=== PATIENT | female | born 1950 | race Caucasian/White ===

== ENCOUNTER 2016-05-26 08:00 | Inpatient (IN) | payer BC ==
[~2016-05-26] VITALS: Ht 162.6 cm; Wt 100.6 kg
[~2016-05-26 08:00] MED LIST: ARMO120T PO; HYDR25TA5 PO; PRIL20CA9 PO; PROBCAP4
[2016-06-01] MEDS ORDERED: POTA10CA PO (13:35)
[2016-06-02] MEDS ORDERED: ACETAMINOPHEN 1000 MG/100 ML VIAL IV SCH (07:30)
[2016-06-02] MEDS ORDERED: METOPROLOL TARTRATE 25 MG TAB PO PRN (07:30)
[2016-06-02] MEDS: SODIUM CHLORID 0.9% 500 ML IV SCH ×2 (07:30→23:57)
[2016-06-02] MEDS ORDERED: INSULIN HUMAN REGULAR 1,000 UNITS/10 ML VIAL SQ PRN (07:30)
[2016-06-02] MEDS ORDERED: VANCOMYCIN HCL 1000 MG ON-CALL/NS 250 ML IV SCH ×2 (07:30)
[2016-06-02 07:46] VITALS: BP 158/77; PULSE 76; RESP 20; TEMP 98.9; O2SAT 98
[2016-06-02] MEDS: LACTATED RINGER'S 1000 ML IV SCH ×2 (07:55→19:47)
[2016-06-02] MEDS: ceFAZolin 1,000 MG/NS 100 ML IV SCH ×4 (07:55→19:47)
[2016-06-02] MEDS ORDERED: DEXAMETHASONE SOD PHOS 4 MG/ML VIAL ONE (08:18)
[2016-06-02] MEDS ORDERED: MIDAZOLAM HCL 5 MG/5 ML VIAL ONE (08:18)
[2016-06-02] MEDS ORDERED: BUPRENORPHINE HCL 0.3 MG/1 ML VIAL ONE (08:19)
[2016-06-02] MEDS ORDERED: HEPARIN SODIUM - SQ 10,000 UNITS/ML VIAL ONE (09:02)
[2016-06-02] MEDS ORDERED: HEPARIN SODIUM - IV 10,000 UNITS/10 ML VIAL ONE (09:02)
[2016-06-02] MEDS ORDERED: SUGAMMADEX SODIUM 200 MG/2 ML VIAL IV PUSH ONE ×2 (09:29)
[2016-06-02] MEDS ORDERED: BUPIVACAINE/EPINEPHRINE 0.25% PF 30 ML VIAL INFIL ONE (10:10)
[2016-06-02 10:11] LABS: HEMATOCRIT 29.5 % (35.0-46.0)
[2016-06-02] MEDS ORDERED: ONDANSETRON HCL 4 MG/2 ML VIAL IV PUSH ONE (10:15)
[2016-06-02] MEDS ORDERED: NITROGLYCERIN 1000 MCG/5 ML VIAL IV ONE (10:15)
[2016-06-02] MEDS ORDERED: LACTATED RINGER'S 1000 ML INJ 1,000 ML IV ONE (10:15)
[2016-06-02] MEDS ORDERED: ceFAZolin INJ 1,000 MG VIAL IV ONE (12:00)
[2016-06-02] MEDS ORDERED: DEXAMETHASONE SOD PHOS PF 10 MG/ML VIAL IV ONE (12:01)
[2016-06-02] MEDS ORDERED: BUPIVACAINE LIPOSOME PF 1.3% 20 ML VIAL ONE (12:02)
[2016-06-02] MEDS ORDERED: DO NOT ADM ANY ANTICOAGULANT DRUGS XX PRN (12:55)
[2016-06-02] MEDS: D5-NS + KCL 20 MEQ INJ 1,000 ML IV SCH ×2 (12:58→20:03)
--- NOTE | 2016-06-02 12:58 | HHI.PR ---
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 Jose Pereira; recommended splenectomy to prevent recurrence as residual tumor usually recurs as disease Complications: None Specimen(s) removed: Spleen, fragmented, to pathology Estimated blood loss: 500 ml Anesthesia: General Drains: None IVF (2000 ml) Patient to: PACU Patient Condition: Good Date/Time of Procedure: SEE SURGICAL CARE RECORD Rajeev Alexander MD Jun 02, 2016 12:58
[2016-06-02] MEDS ORDERED: ACETAMINOPHEN/HYDROcodone 325 MG/5 MG TAB PO PRN ×2 (13:00)
[2016-06-02] MEDS ORDERED: ONDANSETRON HCL 4 MG/2 ML VIAL IV PRN (13:00)
[2016-06-02] MEDS ORDERED: SODIUM CHLORIDE 0.9% FLUSH 5 ML FLUSH IVF PRN (13:00)
[2016-06-02] MEDS ORDERED: ceFAZolin 2 GM PREMIX 50 ML IV SCH (13:00)
[2016-06-02] MEDS ORDERED: HYDROmorphone HCL PF 1 MG/ML VIAL IV PRN (13:00)
[2016-06-02] MEDS ORDERED: NALOXONE HCL 0.4 MG/ML AMP IV PRN (13:00)
[2016-06-02] MEDS ORDERED: ZOLPIDEM TARTRATE 5 MG TAB PO PRN (13:00)
[2016-06-02] MEDS ORDERED: Post-op Orders (for Pharmacy) MISC XX ONE (13:00)
[2016-06-02] MEDS ORDERED: diphenhydrAMINE HCL 50 MG/ML VIAL IVP PRN (13:00)
[2016-06-02] MEDS ORDERED: MORPHINE SULFATE 4 MG/ML INJ IV PUSH PRN (13:00)
[2016-06-02] MEDS ORDERED: MIDAZOLAM HCL 2 MG/2 ML VIAL ONE (13:04)
[2016-06-02] MEDS ORDERED: fentaNYL CITRATE 250 MCG/5 ML AMP ONE (13:05)
[2016-06-02] MEDS ORDERED: *LABETALOL HCL 100 MG/20 ML VIAL PERIprocedural Use ONLY ONE (13:49)
[2016-06-02] MEDS: PCA - TOTAL MG MORPHINE DELIVERED PER SHIFT SCH ×2 (14:00→22:00)
[2016-06-02] MEDS ORDERED: *morphine SULFATE 8 MG/ML PERIprocedure ONLY ONE (14:08)
[2016-06-02 18:30] VITALS: BP 151/97; PULSE 81; RESP 20; TEMP 96.8; O2SAT 91
[2016-06-02] MEDS: ceFAZolin 2 GM PREMIX 50 ML IV SCH ×2 (18:32→23:57)
[2016-06-02 19:05] VITALS: O2SAT 98
[2016-06-02] MEDS ORDERED: NORC5TAB PO (19:16)
[2016-06-02] MEDS: SODIUM CHLORIDE 0.9% FLUSH 5 ML FLUSH IVF SCH (20:03)
[2016-06-02] MEDS: DOCUSATE SODIUM 100 MG CAP PO SCH (23:56)
[2016-06-03 00:10] VITALS: BP 147/68; PULSE 80; RESP 16; TEMP 96.5; O2SAT 94
[2016-06-03 04:00] VITALS: BP 141/82; PULSE 87; RESP 16; TEMP 96.5; O2SAT 94
[2016-06-03] MEDS: PCA - TOTAL MG MORPHINE DELIVERED PER SHIFT SCH ×2 (04:21→14:00)
[2016-06-03] MEDS: D5-NS + KCL 20 MEQ INJ 1,000 ML IV SCH ×2 (04:33→12:58)
[2016-06-03 07:53] VITALS: BP 145/68; PULSE 81; RESP 20; TEMP 98; O2SAT 97
[2016-06-03 08:28] VITALS: O2SAT 96
[2016-06-03] MEDS: SODIUM CHLORIDE 0.9% FLUSH 5 ML FLUSH IVF SCH (09:45)
[2016-06-03] MEDS: DOCUSATE SODIUM 100 MG CAP PO SCH (09:45)
[2016-06-03] MEDS: ceFAZolin 2 GM PREMIX 50 ML IV SCH (09:45)
[2016-06-03 10:33] VITALS: TEMP 97.8
[2016-06-03 11:50] VITALS: BP 150/73; PULSE 81; RESP 20; TEMP 98.7; O2SAT 98
--- NOTE | 2016-06-09 09:32 | MP ---
cc: RAJEEV ALEXANDER M.D., KELLY L. MD DATE OF SURGERY 06/02/2016 PROCEDURE 1. Diagnostic laparoscopy 2. 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 ANESTHESIA General endotracheal SURGEON Rajeev Alexander MD LOLLYPOP MACHINE OPERATOR Cody Llanes MD COMPLICATIONS None DRAINS None SPECIMENS Spleen to pathology. ESTIMATED BLOOD LOSS 500 mL FLUIDS 2000 mL crystalloid Co-surgeon was required due to the complex nature of the procedure with patient with metastatic disease requiring advanced laparoscopic skills. Dr. Llanes was present for the entire procedure and provided exposure and dissection essential to the procedure and good outcome. PROCEDURE IN DETAIL The patient was taken to the operating room and placed on the operating table in the supine position. After an adequate level of general endotracheal anesthesia was achieved, time-out was taken confirming the correct patient, site, and procedure to be performed. Skin and subcutaneous tissue was infiltrated with local anesthetic and a 5 mm trocar was placed in the upper abdomen to the left of the midline. A 5-mm trocar was utilized under direct vision with the laparoscope to obtain access to the abdominal cavity under low-flow insufflation conditions. When the abdominal cavity was reached, high-flow was initiated and a 30 degree 5 mm lens was inserted. Two additional 5-mm trocars were inserted to allow for manipulation of the left upper quadrant. Inspection of the lower abdomen revealed no evidence of tumor. There did not appear to be any tumor in the omentum nor was there any tumor in the mesentery that could be visualized. The spleen was then visualized and the harmonic scalpel was utilized to mobilize the splenocolic ligament. There did not appear to be any gross tumor in the inferior pole of the spleen. Dr. Pereira came into the room and after intraoperative consultation, it was felt that the spleen would serve as a safe reservoir for tumor cells and would allow for tumor to reoccur and not be adequately cleared even with chemotherapy. Thus the patient was best felt to be served by laparoscopic splenectomy at this time even as repeat PET scan in April demonstrated no activity in the spleen or in the mesentery. At this point, a 4th 5 mm trocar was placed and Dr. Llanse and the undersigned then further manipulated the spleen. The superior pole of the spleen was mobilized with the lienosplenic ligament taken down. The inferior pole vessels were taken down with the harmonic scalpel. At this point, a zunilda flex retractor was inserted and an attempt was made to get completely around the spleen. This was partially successful and allowed for manipulation of the spleen so that further splenic ligaments were able to be taken down. With this accomplished, the zunilda flex retractor was able to be completely encircled around the splenic hilum and with this accomplished, the [place] stapler was able to be inserted after upsizing one of the 5-mm trocars in the left midabdomen. The stapler was fired and all but a few short gastrics were able to be taken down with this. At this point, a second firing of the stapler was required. Care was taken to stay close to the splenic hilum so as not to endanger blood supply or the anatomy of the patients previous gastric bypass pouch. When this had been accomplished, bowel appeared to be viable as was the stomach pouch. The spleen was freed up and at this point, the spleen was placed into a large oversized EndoCatch bag and then the bag was brought up to the upsized port in the left midabdomen. The spleen was morcellated with a sponge stick and the pieces extracted. This was submitted for specimen analysis. The two staple lines were then reexamined and seen to be dry. After irrigation, Greta powder was placed into the cavity. Prior to this, manipulation of the mesentery once again was accomplished and no other disease was noted. At this point, insufflation was discontinued and the trocars removed. The 12-mm trocar site fascia was closed with a Alex-Harmon closure device. The remaining local anesthetic was utilized to infiltrate the trocar sites. The skin was closed at each of the trocar sites with 4-0 Vicryl in an interrupted buried fashion. All trocar sites were dressed with Steri-Strips. The patient was extubated and taken back to the recovery room in stable condition. She tolerated the procedure well. MD AUNDREA Hairston/ZAINAB /7:59 AM /9:16 AM [facility]
== END 2016-06-03 14:28 | disposition home or self-care (01) | DRG 358 ==
LOC: HSDI 06-02 06:52 → HOCB 06-02 17:54
PROVIDERS: ADMIT Surgery Trauma Surgery; ATTEND Surgery Trauma Surgery
PROC: 07TP4ZZ Resection of Spleen, Percutaneous Endoscopic Approach (ICD-10-PCS; principal; 2016-06-02 09:22)
DX: C78.89 Secondary malignant neoplasm of other digestive organs (principal); C57.00 Malignant neoplasm of unspecified fallopian tube; E03.9 Hypothyroidism, unspecified; K21.9 Gastro-esophageal reflux disease without esophagitis; E66.9 Obesity, unspecified; Z68.38 Body mass index [BMI] 38.0-38.9, adult; Z98.84 Bariatric surgery status
CPT/HCPCS: 36430; 36591; 85014; 85018; 85025; 86850; 86900; 86901; 86920; 88305; 94150; C9290; J0131; J0592; J0690; J1100; J1642; J1644; J2250; J2270; J2405; J3010; J3370; J3480; J7050; J7120; P9016

== ENCOUNTER 2016-07-25 17:18 | Inpatient (IN) | payer BC ==
[~2016-07-25] VITALS: Ht 162.6 cm; Wt 98.4 kg
[~2016-07-25 17:18] MED LIST changes: +NORC5TAB PO; +POTA10CA PO; -PROBCAP4
[2016-07-25 17:19] VITALS: BP 167/90; PULSE 110; RESP 16; TEMP 99; O2SAT 97
[2016-07-25 17:32] VITALS: BP 168/98; PULSE 109; RESP 24; TEMP 99.1; O2SAT 95
[2016-07-25] MEDS ORDERED: SODIUM CHLOR 0.9% 1000 ML INJ 1,000 ML IV SCH ×2 (17:38→19:15)
[2016-07-25] MEDS ORDERED: TRIA37.5 PO (17:39)
--- NOTE | 2016-07-25 17:39 | PD ---
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 Patient states that for the past 5 days she 's had nasal congestion, runny nose and cough. States that she has been taking Cipro for the past 5 days without improvement of symptoms. States that over the past 2 days her cough has worsened and she is coughing up green sputum. States over the past 2 days she's also had fever. States that today was the highest fever she had at 100.6F. States that she called Dr. Barney who is on- call for her oncologist Dr. Miner and was told to come to the emergency room. States that she has been taking vtva-cmv-cvnkrok cough medicine and pseudoephedrine with minimal improvement of symptoms. Denies chest pain, shortness of breath, difficulty breathing, abdominal pain, nausea, vomiting, diarrhea, body aches. No other complaints. PCP Dr. Mcguire. [facility] Past Medical History Cancer: Yes Cardiovascular Problems: No Chemotherapy: Yes Diabetes: No Endocrine: No Gastrointestinal Disorders: Yes (gerd) Genitourinary: No Hepatitis: No Hiatal Hernia: No Hypertension: No Immune Disorder: No Musculoskeletal: Yes (arthritis r thumb) Neurologic: No Psychiatric: No Reproductive: Yes Respiratory: No Immunizations Current: Yes Thyroid Disease: Yes Influenza Vaccination: Yes Past Surgical History Abdominal Surgery: Yes (GASTRIC BYPASS, LEI,APPY) AICD: No Ear Surgery: No Endocrine Surgery: No Eye Surgery: No Gynecologic Surgery: Yes (total hysterectomy dec 29, 2015) Joint Replacement: No Oral Surgery: Yes (UVILA REMOVED FOR SLEEP APNEA ) Pacemaker: No Other Surgery: Yes Social History Alcohol Use: Yes Tobacco Use: Yes Substance Use: No Allergies-Medications (Allergen,Severity, Reaction): Coded Allergies: Bactrim (Verified Allergy, Unknown, 07/25/16) Septra (Verified Allergy, Unknown, 07/25/16) Reported Meds & Prescriptions Reported Meds & Active Scripts Active Reported Triamterene-Hydrochlorothiazide 37.5-25 Mg Tab 1 Tab PO DAILY Potassium Chloride ER (Potassium Chloride) 10 Meq Cap 10 Meq PO BID Sigel Thyroid (Thyroid) 120 Mg Tab 120 Mg PO DAILY Review of Systems Except as stated in HPI: all other systems reviewed are Neg Physical Exam Narrative GENERAL: Well-nourished and well-developed pleasant female patient in no acute distress. SKIN: Warm and dry. HEAD: Normocephalic and atraumatic. EYES: No injection, drainage, or hyphema noted. PERRLA. EOMI. ENT: No nasal drainage noted. Oropharynx is clear and the TMs are normal with good landmarks. NECK: Supple and the trachea is midline. CARDIOVASCULAR: Regular rate and rhythm. RESPIRATORY: Breath sounds are equal bilaterally with no accessory muscle use, wheezing, rhonchi, or crackles. GASTROINTESTINAL: Abdomen is soft, non-tender, and nondistended. MUSCULOSKELETAL: No obvious deformities, swelling, cyanosis, or ecchymosis is present throughout the upper and lower extremities. Patient has full range of motion without any signs of neurovascular compromise. NEUROLOGICAL: Awake, alert, and oriented. Normal speech and gait. Cranial nerves are grossly intact. Data Data Last Documented VS Vital Signs Date Time Temp Pulse Resp B/P Pulse Ox O2 Delivery O2 Flow Rate FiO2 07/25/16 19:24 98.7 91 18 150/84 95 Room Air Orders Complete Blood Count With Diff (07/25/16 17:38) Comprehensive Metabolic Panel (07/25/16 17:38) Lactic Acid Sepsis Protocol (07/25/16 17:38) Urinalysis - C+S If Indicated (07/25/16 17:38) Influenzae A/B Antigen (07/25/16 17:38) Blood Culture (07/25/16 17:38) Chest, Single Ap (07/25/16 17:38) Ecg Monitoring (07/25/16 17:38) Iv Access Insert/Monitor (07/25/16 17:38) Oximetry (07/25/16 17:38) Acetaminophen (Tylenol) (07/25/16 17:45) Sodium Chlor 0.9% 1000 Ml Inj (Ns 1000 M (07/25/16 17:38) Cefepime Inj (Maxipime Inj) (07/25/16 18:57) Sodium Chlor 0.9% 1000 Ml Inj (Ns 1000 M (07/25/16 19:15) Admit To Inpatient (07/25/16 ) Vital Signs (Adult) Q4H (07/25/16 19:47) Activity Oob Ad [place] (07/25/16 19:47) Police Radio Dispatcher / Telemetry .CONTINUOUS (07/25/16 19:47) Diet Heart Healthy (07/26/16 Breakfast) Sodium Chlor 0.9% 1000 Ml Inj (Ns 1000 M (07/25/16 19:47) Sodium Chloride 0.9% Flush (Ns Flush) (07/25/16 20:00) Sodium Chloride 0.9% Flush (Ns Flush) (07/25/16 21:00) Acetaminophen (Tylenol) (07/25/16 20:00) Ondansetron Inj (Zofran Inj) (07/25/16 20:00) Basic Metabolic Panel (Bmp) (07/26/16 06:00) Complete Blood Count With Diff (07/26/16 06:00) Blood Culture (07/25/16 19:47) Resp Oxygen Jama C Titrat 1-4 L (07/25/16 ) Pt Request For Service (07/25/16 19:47) Heparin Inj (Heparin Inj) (07/25/16 20:00) Naloxone Inj (Narcan Inj) (07/25/16 20:00) Inpatient Certification (07/25/16 ) Cefepime Inj (Maxipime Inj) (07/25/16 20:00) Labs Laboratory Tests Test 07/25/16 18:02 White Blood Count 2.6 TH/MM3 Red Blood Count 3.36 MIL/MM3 Hemoglobin 12.2 GM/DL Hematocrit 35.7 % Mean Corpuscular Volume 106.1 FL Mean Corpuscular Hemoglobin 36.4 PG Mean Corpuscular Hemoglobin 34.3 % Concent Red Cell Distribution Width 20.3 % Platelet Count 129 TH/MM3 Mean Platelet Volume 8.6 FL Neutrophils (%) (Auto) 38.4 % Lymphocytes (%) (Auto) 33.5 % Monocytes (%) (Auto) 26.9 % Eosinophils (%) (Auto) 0.8 % Basophils (%) (Auto) 0.4 % Neutrophils # (Auto) 1.0 TH/MM3 Lymphocytes # (Auto) 0.9 TH/MM3 Monocytes # (Auto) 0.7 TH/MM3 Eosinophils # (Auto) 0.0 TH/MM3 Basophils # (Auto) 0.0 TH/MM3 CBC Comment DIFF FINAL Differential Comment Urine Color LIGHT-YELLOW Urine Turbidity CLEAR Urine pH 7.0 Urine Specific [place] 1.004 Urine Protein NEG mg/dL Urine Glucose (UA) NEG mg/dL Urine Ketones NEG mg/dL Urine Occult Blood NEG Urine Nitrite NEG Urine Bilirubin NEG Urine Urobilinogen LESS THAN 2.0 MG/DL Urine Leukocyte Esterase NEG Urine WBC LESS THAN 1 /hpf Urine Squamous Epithelial <1 /hpf Cells Microscopic Urinalysis Comment CATH-CULT NOT IND Sodium Level 132 MEQ/L Potassium Level 3.1 MEQ/L Chloride Level 93 MEQ/L Carbon Dioxide Level 28.6 MEQ/L Anion Gap 10 MEQ/L Blood Urea Nitrogen 9 MG/DL Creatinine 0.71 MG/DL Estimat Glomerular Filtration 83 ML/MIN Rate Random Glucose 104 MG/DL Lactic Acid Level 1.1 mmol/L Calcium Level 8.7 MG/DL Total Bilirubin 0.3 MG/DL Aspartate Amino Transf 25 U/L (AST/SGOT) Alanine Aminotransferase 24 U/L (ALT/SGPT) Alkaline Phosphatase 118 U/L Total Protein 7.3 GM/DL Albumin 3.6 GM/DL MDM Medical Decision Making Medical Screen Exam Complete: Yes Emergency Medical Condition: Yes Differential Diagnosis Pneumonia versus URI versus sepsis versus neutropenia versus influenza Narrative Course 65-year-old female with a history of fallopian tube cancer who is currently receiving chemotherapy presents to the emergency department for evaluation of fever with productive cough. Patient has a low-grade temperature of 99.1F here in the ED. She is reporting fever of 100.6F at home about 3 hours ago. She is tachycardic with a heart rate of 110 bpm. Otherwise vital signs within normal limits. Physical examination is essentially unremarkable. IV access is obtained, labs were drawn and sent. Patient is placed on cardiac telemetry and pulse oximetry monitoring. She is administered IV fluids. CBC shows a decreased white blood cell count 2.6, red blood cell count of 3.36, decreased platelet count of 129. Her white blood cell count and her platelet count is lower today than it was about 3 weeks ago. CMP shows mild hypokalemia with a potassium of 3.1, this will be repleted orally. Lactic acid is 1.1. Chest x-ray is negative for any acute abnormalities. I discussed the case with my attending physician and with oncologist Dr. Barney who both agree with admission for IV antibiotics for neutropenic fever. I discussed the case with my attending physician Dr. Wilkinson who is aware of the patients history, physical examination findings, and treatment plan. Physician Communication Physician Communication I spoke with Dr. Barney who agrees with admission for IV antibiotics, agrees with choice of Cefepime. I spoke with Dr. Dean DOMINGUEZ who agrees to admit the patient to her service. Diagnosis Primary Impression: Sepsis Qualified Code: A41.9 - Sepsis, due to unspecified organism Additional Impressions: Neutropenia with fever Productive cough History of cancer of fallopian tube in adulthood Admitting Information Admitting Physician Requests: Admit Janet Bryan Jul 25, 2016 17:39
[2016-07-25] MEDS ORDERED: ACETAMINOPHEN 325 MG TAB PO ONE (17:45)
[2016-07-25 18:09] VITALS: O2SAT 95
[2016-07-25 18:20] LABS: BASOPHIL % 0.4 % (0.0-2.0); EOSINOPHIL % 0.8 % (0.0-4.0); HEMATOCRIT 35.7 % (35.0-46.0); HEMO FLAGS DIFF FINAL; LYMPH % 33.5 % (9.0-44.0); LYMPHOCYTE # 0.9 TH/MM3 (1.0-4.8); MEAN CELL VOLUME 106.1 FL (80.0-100.0); MEAN CORPUSCULAR HEMOGLOBIN 36.4 PG (27.0-34.0); MEAN CORPUSCULAR HGB CONC 34.3 % (32.0-36.0); MONO % 26.9 % (0.0-8.0); NEUT % 38.4 % (16.0-70.0); PLATELET COUNT 129 TH/MM3 (150-450); RED BLOOD COUNT 3.36 MIL/MM3 (4.00-5.30); RED CELL DISTRIBUTION WIDTH 20.3 % (11.6-17.2); WHITE BLOOD COUNT 2.6 TH/MM3 (4.0-11.0)
[2016-07-25 18:22] LABS: BLOOD, URINE NEG (NEG); GLUCOSE,URINE NEG (NEG); KETONE, URINE NEG (NEG); NITRITE,URINE NEG (NEG); SQUAMOUS EPITHELIAL CELL URINE <1 /hpf (0-5); URINE COLOR LIGHT-YELLOW (YELLW/STRAW)
[2016-07-25 18:25] LABS: COMMENT (UR) CATH-CULT NOT IND; CULTURE IF INDICATED CATH CULTURE NOT IND
[2016-07-25 18:31] LABS: ANION GAP 10 MEQ/L (5-15); AST (GOT) 25 U/L (15-37); BICARBONATE 28.6 MEQ/L (21.0-32.0); BLOOD UREA NITROGEN 9 MG/DL (7-18); CHLORIDE 93 MEQ/L (98-107); GLOMERULAR FILTRATION RATE 83 ML/MIN (>89); POTASSIUM 3.1 MEQ/L (3.5-5.1); SODIUM (NA) 132 MEQ/L (136-145)
[2016-07-25 18:34] LABS: ALKALINE PHOSPHATASE 118 U/L (45-117); ALT (GPT) 24 U/L (10-53); TOTAL BILIRUBIN ADULT 0.3 MG/DL (0.2-1.0)
--- NOTE | 2016-07-25 18:44 | RADRPT ---
EXAM DATE/TIME: 07/25/2016 17:36 [facility] COMPARISON: No previous studies available for comparison. INDICATIONS : Productive cough with a fever x 5 days. MEDICAL HISTORY : Fallopian tube cancer SURGICAL HISTORY : Hysterectomy. Splenectomy. ENCOUNTER: Initial ACUITY: 1 day PAIN SCORE: 0/10 LOCATION: Bilateral chest FINDINGS: A single view of the chest demonstrates an Kiknkg-i-Knje in superior vena cava. No focal consolidatio n or effusion. No pneumothorax. Mildly tortuous aorta. CONCLUSION: 1. Gvhrtx-w-Msrg tip in superior vena cava. No acute findings. Trino Green MD on July 25, 2016 at 18:40 Board Certified Radiologist. This report was verified electronically.
[2016-07-25] MEDS ORDERED: CEFEPIME INJ 2,000 MG in SODIUM CHLORIDE 0.9% INJ 100 ML IV STA (18:57)
[2016-07-25 19:24] VITALS: BP 150/84; PULSE 91; RESP 18; TEMP 98.7; O2SAT 95
[2016-07-25] MEDS: SODIUM CHLOR 0.9% 1000 ML INJ 1,000 ML IV SCH ×2 (19:47→22:30)
[2016-07-25] MEDS ORDERED: SODIUM CHLORIDE 0.9% FLUSH 10 ML FLUSH IV FLUSH PRN (20:00)
[2016-07-25] MEDS ORDERED: ONDANSETRON HCL 4 MG/2 ML VIAL IVP PRN (20:00)
[2016-07-25] MEDS ORDERED: NALOXONE HCL 0.4 MG/ML AMP IV PRN (20:00)
[2016-07-25] MEDS: SODIUM CHLORIDE 0.9% FLUSH 10 ML FLUSH IV FLUSH SCH (21:00)
[2016-07-25 21:30] VITALS: BP 144/72; PULSE 81; PULSE 92; RESP 18; TEMP 97.8; O2SAT 94
[2016-07-25] MEDS: HEPARIN SODIUM - SQ 10,000 UNITS/ML VIAL SQ SCH (22:27)
[2016-07-25] MEDS: guaiFENesin SOLUTION 200 MG/10 ML CUP PO PRN (22:28)
[2016-07-25] MEDS ORDERED: SODIUM CHLORIDE 0.65% NASAL SPRAY 45 ML BTL NASAL PRN (23:45)
[2016-07-26] VITALS (7 sets, daily range): BP systolic 130–165; BP diastolic 66–81; PULSE 78–93; RESP 16–21; TEMP 97.1–99.5; O2SAT 96–98
[2016-07-26] MEDS: guaiFENesin SOLUTION 200 MG/10 ML CUP PO PRN ×4 (02:59→22:37)
[2016-07-26 06:59] LABS: HEMATOCRIT 33.5 % (35.0-46.0); MEAN CORPUSCULAR HEMOGLOBIN 35.7 PG (27.0-34.0); MEAN CORPUSCULAR HGB CONC 33.4 % (32.0-36.0); PLATELET COUNT 125 TH/MM3 (150-450); RED BLOOD COUNT 3.13 MIL/MM3 (4.00-5.30); WHITE BLOOD COUNT 2.5 TH/MM3 (4.0-11.0)
[2016-07-26 07:15] LABS: BICARBONATE 27.3 MEQ/L (21.0-32.0)
[2016-07-26 07:28] LABS: HEMO FLAGS AUTO DIFF
[2016-07-26 07:33] LABS: POTASSIUM 2.8 MEQ/L (3.5-5.1)
[2016-07-26 08:07] LABS: BANDS 4 % (0-6); POLYS (SEG NEUTROPHILS) 34 % (16-70); WBC DIFF SAMPLE 100
[2016-07-26 08:08] LABS: HOWELL-JOLLY BODIES PRESENT (NONE SEEN); PLATELET ESTIMATE SMEAR LOW (NORMAL); PLATELET MORPHOLOGY NORMAL (NORMAL); SCAN/DIFF FINAL DIFF MANUAL
[2016-07-26] MEDS: ACETAMINOPHEN 325 MG TAB PO PRN (08:09)
[2016-07-26] MEDS: HEPARIN SODIUM - SQ 10,000 UNITS/ML VIAL SQ SCH ×2 (08:10→21:29)
[2016-07-26] MEDS: CEFEPIME INJ 1,000 MG in SODIUM CHLORIDE 0.9% INJ 100 ML IV SCH ×2 (08:11→21:25)
[2016-07-26] MEDS: SODIUM CHLOR 0.9% 1000 ML INJ 1,000 ML IV SCH (08:25)
[2016-07-26] MEDS ORDERED: PSEUDOEPHEDRINE HCL SYRUP 30 MG/5 ML CUP PO PRN (08:30)
[2016-07-26] MEDS ORDERED: POTASSIUM CHLORIDE 20 MEQ CONTROLLED RELEASE TAB PO ONE (08:30)
[2016-07-26] MEDS: SODIUM CHLORIDE 0.9% FLUSH 10 ML FLUSH IV FLUSH SCH ×2 (08:34→21:00)
--- NOTE | 2016-07-26 09:17 | MB ---
cc: RONAN MEDEIROS MD,DELMY Mccoy M.D. DATE OF CONSULTATION: 07/26/2016 DATE OF : 1950 [address] Mcguire. REASON FOR CONSULTATION Febrile illness associated with upper respiratory tract infection and cough in a patient on high-dose chemotherapy. 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 Initially diagnosed in December of 2015. CURRENT TREATMENT The patient is status post five cycles of carboplatin and Taxol with the most recent cycle delivered on 07/07/2016; she received Neulasta growth factor support injection on 07/08/2016. CHIEF COMPLAINT 1. Four day history of sinus and nasal congestion associated with cough producing yellow phlegm. 2. Fevers up to 100.6 degrees Fahrenheit on the night of 07/25/2016. HISTORY OF PRESENT ILLNESS Ms. Bush is a very pleasant 65-year-old female who is well-known to me from my outpatient practice. Ms. 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 She has omental metastases. She underwent initial surgical resection and subsequently received four cycles of carboplatin and Taxol. Between cycles 4 and 5 she underwent additional resection of a tumor deposit in the peritoneum. Overall she had been tolerating treatment reasonably well other than having chemotherapy related myelosuppression and specifically anemia requiring transfusion support. Her most recent dose of chemotherapy was on 07/07/2016 on which day she received carboplatin and Taxol. The following day she received Neulasta support. She was scheduled to receive additional chemotherapy later this week. After developing the symptoms of nasal congestion and low grade fevers she called my manager of construction associate who recommended oral antibiotics. When the patient's symptoms did not improve she was advised to come into the emergency department. She has been initiated on cefepime and IV fluids. She continues to report having a headache. PAST MEDICAL HISTORY 1. Adenocarcinoma of the fallopian tube. 2. Obesity. 3. Personal history of tobaccoism (she quit about 15 years ago and had a 15 pack-year history of smoking). PAST SURGICAL HISTORY 1. Appendectomy. 2. Cholecystectomy. 3. Colonoscopy. 4. CT-guided biopsy of left upper quadrant abdominal mass. 5. D&C. 6. Gastric bypass surgery; Victorina-en-Y in 2002. 7. Hemorrhoidectomy. 8. Laparoscopic splenectomy. 9. Laparoscopic NATHALIE and BSO. 10. Tonsillectomy. 11. Uvuloplasty. GYNECOLOGIC HISTORY 2, para 2, one interrupted . She is postmenopausal. FAMILY HISTORY Mother of an intracranial hemorrhage. Father of complication of dementia. Brother had myeloma. SOCIAL HISTORY The patient is , she lives at home with her . 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 She formerly was a smoker. She has two adult children. ALLERGIES BACTRIM DS. MEDICATION Current inpatient medications: 1. Cefepime 1 gram IV q.12 hours. 2. Azithromycin 500 mg IV q.24 hours. 3. Sodium chloride 100 cc/hour. 4. Tylenol 650 mg p.o. q.4 hours as needed for fever. 5. Guaifenesin 100 mg p.o. q.4 hours as needed for cough. 6. Heparin 5000 units subcu q.12 hours. 7. Zofran 4 mg IV q.6 hours as needed for nausea and vomiting. 8. Potassium chloride 40 mEq p.o. x1. 9. Sudafed 30 mg p.o. q.4 hours as needed for cough. REVIEW OF SYSTEMS 13-point review of systems were obtained, the following are the pertinent positives: CONSTITUTIONAL: The patient reports fatigue, decreased appetite and fevers. She denies weight loss. HEENT: Reports headache, especially when she coughs, she reports nasal congestion, sinus congestion, runny nose. She denies soreness in the throat RESPIRATORY: Reports cough producing phlegm which is scant. She denies angina-like chest pain, PND, orthopnea. GI: She does have some diarrhea, but no melena or hematochezia. : No complaints. RESEARCH NEUROPSYCHOLOGIST: No focal sensory or motor deficits. SKIN: No complaints. PHYSICAL EXAMINATION VITAL SIGNS: Temperature 99.5 degrees Fahrenheit, heart rate 87 beats per minute, respiratory rate 18, blood pressure 165/81, O2 sats 96% on room air. GENERAL APPEARANCE: Ms. Bush is a middle-aged female, she is of medium height and heavy-set, appears to be in no acute distress. HEENT: Head is atraumatic, normocephalic, conjunctivae are not pale. Sclerae are anicteric, EOMI, PERRLA. ORAL EXAM: No pharyngeal erythema. NECK: No palpable cervical or supraclavicular adenopathy. RESPIRATORY: Good air movement bilaterally. No added breath sounds. She has rhonchi and coarse breath sounds bilaterally. CARDIOVASCULAR: Regular rate and rhythm, S1-S2. No obvious murmurs, rubs or gallops. ABDOMEN: Obese belly, soft and nontender, nondistended, palpable organ enlargement. LOWER EXTREMITIES: No pretibial edema or calf tenderness. stem. LABORATORY DATA Blood work dated 07/26/2016: WBC count 2.5, hemoglobin 11.2 grams per deciliter, hematocrit 35.5%, MCV 107, platelet count 125, absolute neutrophil count 1. Chemistries: Sodium 139, potassium 2.8, chloride 102, bicarbonate 27.3, BUN 6, creatinine 0.47, random glucose 133, lactic acid 1.1, calcium 8.3, total bilirubin 0.3, AST 25, ALT 24, alkaline phosphatase 118, albumin 3.6. Urinalysis: Without evidence of infection. Chest x-ray dated 07/25/2016: Reveals no acute findings. ASSESSMENT Ms. 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 Diagnosed in December of 2015. 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 Between the two surgeries she received four cycles of chemotherapy with high-dose carboplatin and Taxol. Her most recent cycle of chemotherapy was on 07/07/2016. Four days prior to admission she developed upper respiratory tract symptoms of runny nose, congestion, cough and phlegm production. She had low grade temperatures of 99-100 degrees Fahrenheit, on the day of presentation her fever spiked to about 100.6 degrees Fahrenheit. Since admission she has been relatively febrile. She has been initiated on empiric IV antibiotics. Her major complaint is that of cough, congestion and headache, especially when she coughs. RECOMMENDATIONS 1. Fallopian tube adenocarcinoma: The goal of care is to treat her up to eight cycles of carboplatin and Taxol. Her response to therapy will be assessed after completion of treatment with restaging imaging scans. She was due for cycle #6 later this week but I will have to postpone this treatment until she recovers from her acute illness. 2. Febrile illness likely related to a viral upper respiratory tract infection: I would recommend empiric antibiotic coverage. It will be reasonable to add on azithromycin to her cefepime. Nasal swab for influenza A and B was negative. 3. Hypokalemia: I have given her a single dose of potassium chloride 40 mEq x1 today. 4. Diet changed to regular. 5. I have also added on Sudafed for management of her congestion. 6. From an oncologic standpoint she may be discharged home once her symptoms are improved. A reasonable regimen for coverage would be perhaps putting her on Levaquin with probiotics upon discharge. For the time being continue cefepime and azithromycin. 7. ANC of 1000: She did receive Neulasta on 07/08/2016. I do not see any additional benefit of adding on Neupogen at this time. MD GRISEL Mclean/PRICE /8:23 AM /8:42 AM
[2016-07-26] MEDS: AZITHROMYCIN INJ 500 MG in SODIUM CHLOR 0.9% 250 ML INJ 250 ML IV SCH (09:25)
[2016-07-26] MEDS ORDERED: 1/2 NS IV SCH (11:00)
[2016-07-26] MEDS ORDERED: KCL IV SCH (11:00)
--- NOTE | 2016-07-26 11:37 | MH ---
cc: MIS VILLELA DATE OF ADMISSION: 07/25/2016 DATE OF 1950 CHIEF COMPLAINT Cough and cold symptoms with congestion. TRAVEL IN THE LAST 30 DAYS None. 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 Currently the patient is on chemotherapy, her regimen is every three weeks and her chemotherapy next dose is due in two days. Currently this has been put on hold per her oncologist and has been placed. The patient noted approximately five days ago nasal congestion acute onset with runny nose and cough. She has been taking [id number] medications and a five-day course of Cipro which is not improving her symptoms. Currently she states she is coughing up a green sputum and she has had a low-grade fever, high being 100.6. The patient talked to her oncologist, Dr. Miner, and instructed anytime to call or be observed if her temperature is higher than 100.4. The patient's cough is a productive sound, raspy. The patient does have a history of tobacco abuse but she quit approximately 15 years ago. The patient denies any chest pain, no shortness of breath. No nausea, vomiting, no diarrhea, no constipation, no headaches. No abdominal pain. As described, chief complaint is cough and cold symptoms. PAST MEDICAL HISTORY 1. Fallopian tube cancer diagnosed in December of 2015, currently receiving chemotherapy regimen. 2. GERD. 3. Bronchitis. 4. Arthritis right thumb. 5. Thyroid disease. 6. Obesity. 7. COPD. 8. Obstructive sleep apnea. SURGICAL HISTORY 1. Cholecystectomy. 2. Appendectomy. 3. Gastric bypass. 4. Total hysterectomy December 29, 2015. 5. Uvula removed for sleep apnea. ALLERGIES BACTRIM. SEPTRA. MEDICATIONS REPORTED 1. Potassium. 2. Thyroid medication. 3. Triamterene hydrochlorothiazide. 4. Cipro for the past 5 days. 5. Whio-kid-liemgzi cough meds. SOCIAL HISTORY The patient is currently , lives with her in her home. She was a previous tobacco user but quit approximately 15 years ago. She enjoys had a social occasional glass of wine or rum. No illicit drug use. FAMILY HISTORY Positive for cancer, melanoma. REVIEW OF SYSTEMS A 12-point review was obtained. Positives noted in the HPI which do include cough, nasal congestion, runny nose. Positive for green sputum, fever low-grade, generalized weakness and malaise, otherwise systems negative or unremarkable PHYSICAL EXAMINATION VITAL SIGNS: Temperature 97.3, pulse 87, respirations 20, blood pressure 142/81, initially on admission 150/84. O2 sat 96 currently on room air. GENERAL: Mildly obese white female, looks to be her stated age, resting in the bed, alert, oriented and a good historian. HEENT: Atraumatic, normocephalic. Alopecia. PERRLA. [place] and moist mucous membranes. NECK: Supple. Heart sounds S1, S2. Regular rate and rhythm. No murmurs, rubs or gallops. EXTREMITIES: She has a trace of pedal edema in her lower extremities. Pulses are intact. RESPIRATORY: The patient does have a few expiratory wheezes noted posteriorly in the upper keene, essentially clear in the lower lung keene. She is positive for some rhonchi. ABDOMEN: Round, soft, nontender, nondistended. Active bowel sounds. MUSCULOSKELETAL: She moves all of her extremities with purpose. She has equal hand director corporate compliance. No clubbing, no cyanosis. NEUROLOGIC: Alert, oriented, awake. Speech is clear and normal. PSYCHOLOGICAL: Appropriate mood and affect. DIAGNOSTIC DATA WBC count 2.5, RBC 3.13, hemoglobin 11.2, hematocrit 33.5, platelet count is 125. Monocyte percentage is high at 20, monocyte percentage auto is 26.9, platelets are low. Morphology is normal. [place] bodies present. Neutrophil percentage manual 34. Chemistry: Sodium 139, potassium 2.8, chloride 102, carbon dioxide 27.3. Anion gap 10, BUN is 6 or 7, GFR 133, glucose 90, calcium 8.3. Urine is yellow, clear, pH of 7. Specific gravity 1.004. Negative for protein, glucose, ketones, occult blood, nitrites and bilirubin. The leukocyte esterase is negative. Culture is not indicated. IMAGING Chest x-ray with a port in the superior vena cava but no other acute findings. ASSESSMENT 1. Lactic acid sepsis due to unspecified organism. 2. Probable upper respiratory infection with bronchitis. 3. Neutropenia with fever. 4. Hypokalemia, severe. 5. Thrombocytopenia. 6. Anemia. 7. History of cancer of the fallopian tubes. PLAN 1. Admit to inpatient status. In the emergency room the patient had IV access ECG monitoring, labs, Tylenol p.o., gentle hydration. She received azithromycin IV and cefepime IV. Labs were initiated. 2. PUD prophylaxis with heparin. 3. O2 per nasal cannula. 4. We will also place her on a heart healthy diet. 5. Give her guaifenesin for her cough q. 4 p.r.n. 6. Nasal spray q. 4 p.r.n. 7. Pseudoephedrine currently with q. p.r.n. 8. We will maintain her on Azithromycin IV as well as her cefepime. 9. Consult Oncology for his expert opinion. This is his patient on an outpatient basis and he will followup. He has changed her diet to a regular diet and is monitoring her labs related to her fallopian tube adenocarcinoma. We appreciate his expert opinion. 10. I will give her some potassium boluses and keep her fluids going at 100 cc/hour. 11. Sputum culture. 12. PUD prophylaxis with Pepcid. 13. Reconcile her medications. 14. Vital signs q. 4 as warranted. 15. Activity out of bed but with assistance. The patient's plan of care and treatment regimen will be based on her needs during this hospital course. The patient is full code, full aggressive dare and we will treat. Dictated by: JUNE Weiner MD GHADA Somers/JOSH /10:34 AM /11:06 AM
[2016-07-26] MEDS: TRIAMTERENE/HCTZ 37.5 MG/25 MG TAB PO SCH (11:56)
[2016-07-26] MEDS: THYROID 60 MG TAB PO SCH (11:56)
[2016-07-26] MEDS: FAMOTIDINE 20 MG TAB PO SCH ×2 (11:56→21:29)
[2016-07-26] MEDS: POTASSIUM CHLOR 20 MEQ PREMIX 100 ML IV SCH ×2 (11:57→13:47)
--- NOTE | 2016-07-26 15:25 | HHI.PR ---
Vitals/Results Intake & Output 07/25/16 07/25/16 07/26/16 15:00 23:00 07:00 Intake Total 480 ml 480 ml Balance 480 ml 480 ml Intake Oral 480 ml 480 ml # Voids 4 5 # Bowel Movements 1 Vital Signs Vital Signs Date Time Temp Pulse Resp B/P Pulse Ox O2 Delivery O2 Flow Rate FiO2 07/26/16 12:00 97.7 78 21 142/78 98 07/26/16 10:08 96 21 07/26/16 08:00 97.3 87 20 142/81 96 07/26/16 04:00 99.5 87 18 165/81 96 07/26/16 00:00 98.7 84 19 143/70 98 07/25/16 21:30 97.8 92 18 144/72 94 07/25/16 21:30 81 07/25/16 19:24 98.7 91 18 150/84 95 Room Air 07/25/16 18:09 95 Room Air 07/25/16 17:32 99.1 109 24 168/98 95 07/25/16 17:19 99.0 110 16 167/90 97 CBC/BMP: 07/26/16 0542 07/26/16 0542 Lab Results Laboratory Tests Test 07/25/16 07/26/16 18:02 05:42 White Blood Count 2.6 TH/MM3 2.5 TH/MM3 Red Blood Count 3.36 MIL/MM3 3.13 MIL/MM3 Hemoglobin 12.2 GM/DL 11.2 GM/DL Hematocrit 35.7 % 33.5 % Mean Corpuscular Volume 106.1 FL 107.0 FL Mean Corpuscular Hemoglobin 36.4 PG 35.7 PG Mean Corpuscular Hemoglobin 34.3 % 33.4 % Concent Red Cell Distribution Width 20.3 % 20.0 % Platelet Count 129 TH/MM3 125 TH/MM3 Mean Platelet Volume 8.6 FL 8.9 FL Neutrophils (%) (Auto) 38.4 % % Lymphocytes (%) (Auto) 33.5 % % Monocytes (%) (Auto) 26.9 % % Eosinophils (%) (Auto) 0.8 % % Basophils (%) (Auto) 0.4 % % Neutrophils # (Auto) 1.0 TH/MM3 TH/MM3 Lymphocytes # (Auto) 0.9 TH/MM3 TH/MM3 Monocytes # (Auto) 0.7 TH/MM3 TH/MM3 Eosinophils # (Auto) 0.0 TH/MM3 TH/MM3 Basophils # (Auto) 0.0 TH/MM3 TH/MM3 CBC Comment DIFF FINAL AUTO DIFF Differential Comment FINAL DIFF MANUAL Urine Color LIGHT-YELLOW Urine Turbidity CLEAR Urine pH 7.0 Urine Specific [place] 1.004 Urine Protein NEG mg/dL Urine Glucose (UA) NEG mg/dL Urine Ketones NEG mg/dL Urine Occult Blood NEG Urine Nitrite NEG Urine Bilirubin NEG Urine Urobilinogen LESS THAN 2.0 MG/DL Urine Leukocyte Esterase NEG Urine WBC LESS THAN 1 /hpf Urine Squamous Epithelial <1 /hpf Cells Microscopic Urinalysis Comment CATH-CULT NOT IND Sodium Level 132 MEQ/L 139 MEQ/L Potassium Level 3.1 MEQ/L 2.8 MEQ/L Chloride Level 93 MEQ/L 102 MEQ/L Carbon Dioxide Level 28.6 MEQ/L 27.3 MEQ/L Anion Gap 10 MEQ/L 10 MEQ/L Blood Urea Nitrogen 9 MG/DL 6 MG/DL Creatinine 0.71 MG/DL 0.47 MG/DL Estimat Glomerular Filtration 83 ML/MIN 133 ML/MIN Rate Random Glucose 104 MG/DL 90 MG/DL Lactic Acid Level 1.1 mmol/L Calcium Level 8.7 MG/DL 8.3 MG/DL Total Bilirubin 0.3 MG/DL Aspartate Amino Transf 25 U/L (AST/SGOT) Alanine Aminotransferase 24 U/L (ALT/SGPT) Alkaline Phosphatase 118 U/L Total Protein 7.3 GM/DL Albumin 3.6 GM/DL Differential Total Cells 100 Counted Neutrophils % (Manual) 34 % Band Neutrophils % 4 % Lymphocytes % 42 % Monocytes % 20 % Neutrophils # (Manual) 1.0 TH/MM3 Platelet Estimate LOW Platelet Morphology Comment NORMAL [place] Bodies PRESENT Microbiology Microbiology 07/25/16 Aerobic Blood Culture - Preliminary, Resulted NO GROWTH IN 1 DAY 07/25/16 Anaerobic Blood Culture - Preliminary, Resulted NO GROWTH IN 1 DAY 07/25/16 Aerobic Blood Culture - Preliminary, Resulted NO GROWTH IN 1 DAY 07/25/16 Anaerobic Blood Culture - Preliminary, Resulted NO GROWTH IN 1 DAY 07/25/16 Influenza Types A,B Antigen (KRISTINA) - Final, Complete NEGATIVE FOR FLU A AND B ANTIGEN.... Assessment/Plan Assessment/Plan patient seen and examined on cefepime and azithromycin no fever overnight CXR neg, can switch to po antibiotics in am ( beat run of V Tach , asymptomatic check Ca and magnesium level replace Potassium monitor discussed with patient discussed with nursing staff discussed with Jenae Mcintosh MD Jul 26, 2016 15:25
[2016-07-26 19:20] LABS: MAGNESIUM 1.8 MG/DL (1.5-2.5); POTASSIUM 3.6 MEQ/L (3.5-5.1)
[2016-07-26] MEDS ORDERED: BENZOCAINE-MENTHOL (SUGAR FREE) 15 MG-3.6 MG LOZENGE BUCCAL PRN (21:30)
[2016-07-27] VITALS (8 sets, daily range): BP systolic 138–177; BP diastolic 68–77; PULSE 65–90; RESP 18–20; TEMP 96.6–98.4; O2SAT 96–99
[2016-07-27] MEDS: ACETAMINOPHEN 325 MG TAB PO PRN (00:50)
[2016-07-27] MEDS: SODIUM CHLOR 0.9% 1000 ML INJ 1,000 ML IV SCH ×3 (01:47→21:48)
[2016-07-27 06:07] LABS: BICARBONATE 28.4 MEQ/L (21.0-32.0); POTASSIUM 3.1 MEQ/L (3.5-5.1)
[2016-07-27] MEDS ORDERED: MAGNESIUM SULFATE 1 GM PREMIX 100 ML IV ONE (07:45)
--- NOTE | 2016-07-27 07:47 | PD.ONC.PN ---
Subjective Subjective Remarks Patient seen and examined, subjectively she reports her respiratory tract symptoms have improved. She is coughing last and reports decreased discharge from the nose. Overnight she had a 9 beat run of ventricular tachycardia. She remains afebrile. Objective Data Date Time Temp Pulse Resp B/P Pulse Ox O2 Delivery O2 Flow Rate FiO2 07/27/16 04:30 97.2 65 18 168/77 98 07/27/16 00:00 97.5 80 18 167/76 98 07/26/16 20:00 97.3 88 16 130/66 97 07/26/16 20:00 88 07/26/16 16:00 97.1 82 16 137/71 07/26/16 12:00 97.7 78 21 142/78 98 07/26/16 10:08 96 21 07/26/16 08:00 93 07/26/16 08:00 97.3 87 20 142/81 96 Result Diagram: 07/26/16 0542 07/27/16 0445 Laboratory Results Laboratory Tests Test 07/26/16 07/27/16 18:10 04:45 Potassium Level 3.6 MEQ/L 3.1 MEQ/L Magnesium Level 1.8 MG/DL Sodium Level 140 MEQ/L Chloride Level 104 MEQ/L Carbon Dioxide Level 28.4 MEQ/L Anion Gap 8 MEQ/L Blood Urea Nitrogen 5 MG/DL Creatinine 0.47 MG/DL Estimat Glomerular Filtration 133 ML/MIN Rate Random Glucose 87 MG/DL Calcium Level 8.5 MG/DL Culture Results Microbiology Date/Time Procedure Status Source Growth 07/25/16 17:57 Aerobic Blood Culture - Preliminary Resulted Blood Peripheral NO GROWTH IN 1 DAY 07/25/16 17:57 Anaerobic Blood Culture - Preliminary Resulted Blood Peripheral NO GROWTH IN 1 DAY 07/25/16 18:02 Aerobic Blood Culture - Preliminary Resulted Blood Peripheral NO GROWTH IN 1 DAY 07/25/16 18:02 Anaerobic Blood Culture - Preliminary Resulted Blood Peripheral NO GROWTH IN 1 DAY 07/25/16 18:02 Influenza Types A,B Antigen (KRISTINA) - Final Complete Nasal Washing NEGATIVE FOR FLU A AND B ANTIGEN.... 07/26/16 15:30 Gram Stain Received Sputum Expectorated Sputum Pending 07/26/16 15:30 Sputum Culture Received Sputum Expectorated Sputum Pending Administered Medications Medications (Trade) Dose Ordered Sig/Mariela Route PRN Reason Start Time Stop Time Status Last Admin Dose Admin Sodium Chloride (NS 1000 ml Inj) 1,000 ml @ 100 mls/hr Q10H IV 07/25/16 19:47 07/27/16 01:47 Acetaminophen (Tylenol) 650 mg Q4H PRN PO TEMP > 100.4 07/25/16 20:00 07/27/16 00:50 Heparin Sodium (Porcine) 5000 units 5,000 units Q12H SQ 07/25/16 21:00 07/26/16 21:29 Cefepime HCl/ Sodium Chloride (Maxipime Inj/NS Inj) 100 ml @ 200 mls/hr Q12H IV 07/26/16 08:00 07/26/16 21:25 Guaifenesin (Robitussin Liq) 100 mg Q4H PRN PO COUGH 07/25/16 23:00 07/26/16 22:37 Sodium Chloride 1 spray 1 spray Q4H PRN NASAL NASAL CONGESTION 07/25/16 23:45 07/26/16 00:13 Azithromycin/ Sodium Chloride (Zithromax Inj/ NS 250 ml Inj) 250 ml @ 250 mls/hr Q24H IV 07/26/16 09:00 07/26/16 09:25 Famotidine (Pepcid) 20 mg BID PO 07/26/16 11:00 07/26/16 21:29 Thyroid ([place] Thyroid) 120 mg DAILY PO 07/26/16 12:00 07/26/16 11:56 Triamterene/HCTZ (Maxzide 37.5-25 Mg) 1 tab DAILY PO 07/26/16 12:00 07/26/16 11:56 Benzocaine/Menthol (Cepacol Extra Eve (Sugar Free)) 1 lozenge UNSCH PRN BUCCAL COUGH 07/26/16 21:30 07/26/16 21:52 Objective Remarks GENERAL APPEARANCE: Ms. Bush is a middle-aged female, she is of medium height and heavy-set, appears to be in no acute distress. HEENT: Head is atraumatic, normocephalic, conjunctivae are not pale. Sclerae are anicteric, EOMI, PERRLA. ORAL EXAM: No pharyngeal erythema. NECK: No palpable cervical or supraclavicular adenopathy. RESPIRATORY: Good air movement bilaterally. No added breath sounds. She has rhonchi and coarse breath sounds bilaterally. CARDIOVASCULAR: Regular rate and rhythm, S1-S2. No obvious murmurs, rubs or gallops. ABDOMEN: Obese belly, soft and nontender, nondistended, palpable organ enlargement. LOWER EXTREMITIES: No pretibial edema or calf tenderness. stem. Assessment/Plan Assessment Ms. 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 Diagnosed in December of 2015. 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 Between the two surgeries she received four cycles of chemotherapy with high-dose carboplatin and Taxol. Her most recent cycle of chemotherapy was on 07/07/2016. Four days prior to admission she developed upper respiratory tract symptoms of runny nose, congestion, cough and phlegm production. She had low grade temperatures of 99-100 degrees Fahrenheit, on the day of presentation her fever spiked to about 100.6 degrees Fahrenheit. Since admission she has been relatively febrile. She has been initiated on empiric IV antibiotics. Her major complaint is that of cough, congestion and headache, especially when she coughs. Plan 1. Fallopian tube adenocarcinoma: The goal of care is to treat her up to eight cycles of carboplatin and Taxol. Her response to therapy will be assessed after completion of treatment with restaging imaging scans. She was due for cycle #6 later this week but I will have to postpone this treatment until she recovers from her acute illness. 2. Febrile illness likely related to a viral upper respiratory tract infection: I would recommend empiric antibiotic coverage. It will be reasonable to add on azithromycin to her cefepime. Nasal swab for influenza A and B was negative. 3. Hypokalemia: IV replacement of potassium chloride and magnesium has been ordered. Consider discontinuation of hydrochlorothiazide as this may be exacerbating the hypokalemia. 4. Diet changed to regular. 5. I have also added on Sudafed for management of her congestion. 6. From an oncologic standpoint she may be discharged home once her symptoms are improved. A reasonable regimen for coverage would be perhaps putting her on Levaquin with probiotics upon discharge. For the time being continue cefepime and azithromycin. 7. ANC of 1000: She did receive Neulasta on 07/08/2016. I do not see any additional benefit of adding on Neupogen at this time. Newton Miner MD Jul 27, 2016 07:47
[2016-07-27] MEDS: FAMOTIDINE 20 MG TAB PO SCH ×2 (08:33→20:39)
[2016-07-27] MEDS: TRIAMTERENE/HCTZ 37.5 MG/25 MG TAB PO SCH (08:33)
[2016-07-27] MEDS: THYROID 60 MG TAB PO SCH (08:33)
[2016-07-27] MEDS: AZITHROMYCIN INJ 500 MG in SODIUM CHLOR 0.9% 250 ML INJ 250 ML IV SCH (08:33)
[2016-07-27] MEDS: CEFEPIME INJ 1,000 MG in SODIUM CHLORIDE 0.9% INJ 100 ML IV SCH ×2 (08:33→20:19)
[2016-07-27] MEDS: SODIUM CHLORIDE 0.9% FLUSH 10 ML FLUSH IV FLUSH SCH ×2 (08:34→20:23)
[2016-07-27] MEDS: HEPARIN SODIUM - SQ 10,000 UNITS/ML VIAL SQ SCH ×2 (08:34→20:39)
[2016-07-27] MEDS: POTASSIUM CHLOR 40 MEQ PREMIX 100 ML IV SCH ×2 (08:35→12:12)
[2016-07-27] MEDS: guaiFENesin SOLUTION 200 MG/10 ML CUP PO PRN ×3 (09:12→20:40)
--- NOTE | 2016-07-27 10:22 | HHI.PR ---
Subjective Interval History awake alert and oriented sitting in chair no more episodes of Vtach breathing a lot better, cough 90 % improved anxious to go home Vitals/Results Intake & Output 07/26/16 07/26/16 07/27/16 15:00 23:00 07:00 Intake Total 2560 ml 600 ml 480 ml Balance 2560 ml 600 ml 480 ml Intake Oral 900 ml 600 ml 480 ml IV Total 1660 ml # Voids 3 4 3 # Bowel Movements 1 4 3 Vital Signs Vital Signs Date Time Temp Pulse Resp B/P Pulse Ox O2 Delivery O2 Flow Rate FiO2 07/27/16 04:30 97.2 65 18 168/77 98 07/27/16 00:00 97.5 80 18 167/76 98 07/26/16 20:00 97.3 88 16 130/66 97 07/26/16 20:00 88 07/26/16 16:00 97.1 82 16 137/71 07/26/16 12:00 97.7 78 21 142/78 98 CBC/BMP: 07/26/16 0542 07/27/16 0445 Lab Results Laboratory Tests Test 07/26/16 07/27/16 18:10 04:45 Potassium Level 3.6 MEQ/L 3.1 MEQ/L Magnesium Level 1.8 MG/DL Sodium Level 140 MEQ/L Chloride Level 104 MEQ/L Carbon Dioxide Level 28.4 MEQ/L Anion Gap 8 MEQ/L Blood Urea Nitrogen 5 MG/DL Creatinine 0.47 MG/DL Estimat Glomerular Filtration 133 ML/MIN Rate Random Glucose 87 MG/DL Calcium Level 8.5 MG/DL Microbiology Microbiology 07/26/16 Gram Stain - Final, Resulted 07/26/16 Sputum Culture, Resulted Pending Assessment/Plan Assessment/Plan PHYSICAL EXAMINATION GENERAL: Mildly obese white female, looks to be her stated age, resting in the bed, alert, oriented and a good historian. HEENT: Atraumatic, normocephalic. Alopecia. PERRLA. [place] and moist mucous membranes. NECK: Supple. Heart sounds S1, S2. Regular rate and rhythm. No murmurs, rubs or gallops. EXTREMITIES: She has a trace of pedal edema in her lower extremities. Pulses are intact. RESPIRATORY: b/l coarse breath sounds, no wheezes ABDOMEN: Round, soft, nontender, nondistended. Active bowel sounds. MUSCULOSKELETAL: She moves all of her extremities with purpose. She has equal hand map editor. No clubbing, no cyanosis. NEUROLOGIC: Alert, oriented, awake. Speech is clear and normal. PSYCHOLOGICAL: Appropriate mood and affect. ASSESSMENT 1. Probable upper respiratory infection with bronchitis. 3. Neutropenia with low grade fever. 4. Hypokalemia, severe. 5. Thrombocytopenia. 6. Anemia. 7. History of cancer of the fallopian tubes. PLAN Patient seen and examined on Cefepime and Azithromycin, symptoms seem to be improving switch to po antibiotics soon Sudafed added monitor wbc and platelet count, low but stable Appreciate Hematology/ Oncology input replace electrolytes aggressivelt d/c HCTZ add low dose Coreg for BP management PUD prophylaxis DVT prophylaxis with SCD d/c heparin ( patient has thrombocytopenia and ambulating in room). O2 per nasal cannula. heart healthy diet. guaifenesin for her cough q. 4 p.r.n. Nasal spray q. 4 p.r.n. discussed with patient discussed with nursing staff Anticipate discharge in Jenae De Jesus MD Jul 27, 2016 10:22
[2016-07-27] MEDS: CARVEDILOL 3.125 MG TAB PO SCH ×2 (12:20→20:39)
[2016-07-28] VITALS: BP 131/65; PULSE 77; RESP 16; TEMP 97.7; O2SAT 97
[2016-07-28 04:30] VITALS: BP 116/87; PULSE 84; RESP 16; TEMP 97.2; O2SAT 97
[2016-07-28] MEDS: SODIUM CHLOR 0.9% 1000 ML INJ 1,000 ML IV SCH (07:47)
[2016-07-28 07:50] VITALS: BP 139/83; PULSE 70; RESP 20; TEMP 96.2; O2SAT 97
[2016-07-28] MEDS: THYROID 60 MG TAB PO SCH (08:06)
[2016-07-28] MEDS: AZITHROMYCIN INJ 500 MG in SODIUM CHLOR 0.9% 250 ML INJ 250 ML IV SCH (08:07)
[2016-07-28] MEDS: CEFEPIME INJ 1,000 MG in SODIUM CHLORIDE 0.9% INJ 100 ML IV SCH (08:07)
[2016-07-28] MEDS: CARVEDILOL 3.125 MG TAB PO SCH (08:08)
[2016-07-28] MEDS: FAMOTIDINE 20 MG TAB PO SCH (08:08)
[2016-07-28] MEDS: HEPARIN SODIUM - SQ 10,000 UNITS/ML VIAL SQ SCH (08:08)
[2016-07-28] MEDS: guaiFENesin SOLUTION 200 MG/10 ML CUP PO PRN (08:08)
[2016-07-28] MEDS: SODIUM CHLORIDE 0.9% FLUSH 10 ML FLUSH IV FLUSH SCH (08:09)
[2016-07-28 10:24] VITALS: O2SAT 96
[2016-07-28] MEDS ORDERED: CEFT500T3 PO (10:38)
[2016-07-28] MEDS ORDERED: CARV3.125 PO (10:39)
--- NOTE | 2016-07-28 10:39 | PQ ---
Physician Query Response Document PATIENT: RIVKA JOHNSON : 1950 ADMIT DATE: 07/25/2016 7:52 PM DISCH DATE: RESPONDING PROVIDER #: [email or web address] QUERY TEXT: Sepsis Query LACTIC ACID SEPSIS IS DOCUMENTED IN THE MEDICAL RECORD Based on your medical judgement, can you further clarify the followin. SEPSIS CONFIRMED 2. SEPSIS RULED OUT 3. A localized Infection only 4. Another condition - please specify 5. Unable to determine - please explain. The patient's Clinical Indicators include: PER H 1. Lactic acid sepsis due to unspecified organism- 2. Probable upper respiratory infection with bronchitis NO SUBSEQUENT MENTION OF SEPSIS 07/25/16 WBC=2.6, LACTIC ACID=1.1 07/25/16 TEMP=99.1 ORAL, OI=474, RR=16, B/P=167/90 BLOOD CULTURES NEG SPUTUM CULTURE PENDING CXR SHOWS NO ACUTE FINDINGS Query created by: Dai Winn on 07/27/2016 11:06 AM RESPONSE TEXT: Sepsis ruled out Electronically signed by: Jenae Moran MD 07/28/2016 10:35 AM
--- NOTE | 2016-07-28 10:41 | HHI.PR ---
Subjective Interval History awake alert and oriented breathing ok anxious to go home BP better controlled Vitals/Results Intake & Output 07/27/16 07/27/16 07/28/16 15:00 23:00 07:00 Intake Total 480 ml 1500 ml Balance 480 ml 1500 ml Intake Oral 480 ml 1500 ml # Voids 6 3 2 # Bowel Movements 1 Vital Signs Vital Signs Date Time Temp Pulse Resp B/P Pulse Ox O2 Delivery O2 Flow Rate FiO2 07/28/16 10:24 96 21 07/28/16 04:30 97.2 84 16 116/87 97 07/28/16 00:00 97.7 77 16 131/65 97 07/27/16 20:00 90 07/27/16 20:00 96.6 79 18 140/71 96 07/27/16 17:48 99 21 07/27/16 16:00 98.4 76 20 138/68 99 07/27/16 12:00 97.1 83 20 177/73 96 07/27/16 11:27 97 21 CBC/BMP: 07/26/16 0542 07/27/16 0445 Assessment/Plan Assessment/Plan PHYSICAL EXAMINATION GENERAL: Mildly obese white female, looks to be her stated age, resting in the bed, alert, oriented and a good historian. HEENT: Atraumatic, normocephalic. Alopecia. PERRLA. [place] and moist mucous membranes. NECK: Supple. Heart sounds S1, S2. Regular rate and rhythm. No murmurs, rubs or gallops. EXTREMITIES: She has a trace of pedal edema in her lower extremities. Pulses are intact. RESPIRATORY: b/l CTA, no wheezes ABDOMEN: Round, soft, nontender, nondistended. Active bowel sounds. MUSCULOSKELETAL: She moves all of her extremities with purpose. She has equal hand black puller. No clubbing, no cyanosis. NEUROLOGIC: Alert, oriented, awake. Speech is clear and normal. PSYCHOLOGICAL: Appropriate mood and affect. ASSESSMENT 1. Probable upper respiratory infection with bronchitis. 3. Neutropenia with low grade fever. 4. Hypokalemia, severe. 5. Thrombocytopenia. 6. Anemia. 7. History of cancer of the fallopian tubes. PLAN Patient seen and examined on Cefepime and Azithromycin, symptoms seem to be improving. switch to po ceftin Sudafed monitor wbc and platelet count, low but stable Appreciate Hematology/ Oncology input replace electrolytes aggressively d/c HCTZ low dose Coreg for BP management PUD prophylaxis DVT prophylaxis with SCD d/c heparin ( patient has thrombocytopenia and ambulating in room). heart healthy diet. guaifenesin for her cough q. 4 p.r.n. Nasal spray q. 4 p.r.n. discussed with patient discussed with nursing staff ok to d/c home outpatient follow up with Dr Miner on Tuesday [facility] outpatient Jenae Moran MD Jul 28, 2016 10:41
--- NOTE | 2016-08-03 18:16 | HHI.DS ---
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 Currently the patient is on chemotherapy, her regimen is every three weeks and her chemotherapy next dose is due in two days. Currently this has been put on hold per her oncologist. The patient noted approximately five days ago nasal congestion acute onset with runny nose and cough. She had been taking ldin-imc-lrbwgnl medications and a five-day course of Cipro which is not improving her symptoms. Currently she stated she is coughing up a green sputum and she has had a low-grade fever, high being 100.6. Imaging Last Impressions Chest X-Ray 07/25/16 1761 Signed Impressions: Service Date/Time: Monday, July 25, 2016 17:36 - CONCLUSION: 1. Infuse-a- Port tip in superior vena cava. No acute findings. Trino Green MD PE at Discharge GENERAL: Mildly obese white female, looks to be her stated age, resting in the bed, alert, oriented and a good historian. HEENT: Atraumatic, normocephalic. Alopecia. PERRLA. [place] and moist mucous membranes. NECK: Supple. Heart sounds S1, S2. Regular rate and rhythm. No murmurs, rubs or gallops. EXTREMITIES: She had a trace of pedal edema in her lower extremities. Pulses are intact. RESPIRATORY: b/l CTA, no wheezes ABDOMEN: Round, soft, nontender, nondistended. Active bowel sounds. MUSCULOSKELETAL: She moves all of her extremities with purpose. She has equal hand ball point splitter. No clubbing, no cyanosis. NEUROLOGIC: Alert, oriented, awake. Speech is clear and normal. PSYCHOLOGICAL: Appropriate mood and affect. Hospital Course This is the diagnoses that were used to treat this patient during this hospital stay and for her plan of care. 1. Probable upper respiratory infection with bronchitis. 3. Neutropenia with low grade fever. 4. Hypokalemia, severe. 5. Thrombocytopenia. 6. Anemia. 7. History of cancer of the fallopian tubes. PLAN Patient seen and examined daily per [facility] and or Benita.Cee. vital signs were monitored every 4 and as needed. Labs were monitored throughout her hospital stay Treatment regimen included IV Cefepime and Azithromycin, symptoms seem to be improving. Once patient was stabilized the first few days , drug was switched to po ceftin Sudafed used as needed Labs were drawn throughout hospital stay and monitored. wbc and platelet count , low but stable. Appreciate Hematology/ Oncology input for patient's fallopian tube cancer and metastasis. We'll follow up on an outpatient basis which patient is stabilized replace electrolytes aggressively, and IV hydration. d/c HCTZ and used low dose Coreg for BP management PUD prophylaxis DVT prophylaxis with SCD d/c heparin ( patient has thrombocytopenia and ambulating in room). heart healthy diet and encourage patient to eat and keep her calories up for her nutrition. guaifenesin for her cough q. 4 p.r.n. patient responded positively to her when necessary meds. Nasal spray q. 4 p.r.n. discussed with patient her plan of care, and educated on her needs on an outpatient basis. Patient was seen per Dr. ryan on day of discharge and felt she was medically stable to continue her treatment regimen as an outpatient discussed with nursing staff, educated and answered any questions ok to d/c home outpatient follow up with Dr Miner on Tuesday Draw lab BMP as an outpatient Pt Condition on Discharge: Stable Discharge Disposition: Discharge Home Discharge Instructions DIET: Follow Instructions for: Heart Healthy Diet Activities you can perform: Regular-No Restrictions New Medications: Cefuroxime (Ceftin) 500 Mg Tab 500 MG PO BID Infection #14 Ref 0 TAB Carvedilol (Coreg) 3.125 Mg Tab 3.125 MG PO Q12HR HTN #30 TAB Continued Medications: Thyroid ([place] Thyroid) 120 Mg Tab 120 MG PO DAILY Thyroid Supplement #30 Ref 0 TAB Discontinued Medications: Potassium Chloride ER (Potassium Chloride ER) 10 Meq Cap 10 MEQ PO BID Electrolyte Replacement #60 Ref 0 CAP Triamterene-Hydrochlorothiazide (Triamterene-Hydrochlorothiazide) 37.5-25 Mg Tab 1 TAB PO DAILY #30 Ref 0 TAB Earlene Foster Aug 03, 2016 18:16
== END 2016-07-28 12:13 | disposition home or self-care (01) | DRG 872 ==
LOC: NEPC 17:18 → NEDA 19:52 → HOCB 21:19
PROVIDERS: ADMIT Internal Medicine; ATTEND Internal Medicine
DX: A41.9 Sepsis, unspecified organism (principal); I47.2 Ventricular tachycardia; D70.9 Neutropenia, unspecified; C78.6 Secondary malignant neoplasm of retroperitoneum and peritoneum; D69.6 Thrombocytopenia, unspecified; C57.00 Malignant neoplasm of unspecified fallopian tube; D64.81 Anemia due to antineoplastic chemotherapy; E87.6 Hypokalemia; G47.33 Obstructive sleep apnea (adult) (pediatric); J06.9 Acute upper respiratory infection, unspecified; J44.9 Chronic obstructive pulmonary disease, unspecified; K21.9 Gastro-esophageal reflux disease without esophagitis; R50.81 Fever presenting with conditions classified elsewhere; T45.1X5A Adverse effect of antineoplastic and immunosuppressive drugs, initial encounter; Z87.891 Personal history of nicotine dependence; Z90.81 Acquired absence of spleen; Z98.84 Bariatric surgery status
CPT/HCPCS: 71010; 80048; 80053; 81001; 83605; 83735; 84132; 85007; 85025; 85027; 87040; 87070; 87205; 87804; 96361; 96365; J0456; J0692; J1644; J3475; J3480; J7030; J7050

== ENCOUNTER 2016-09-29 08:21 | Emergency (ER) | payer BC, MEDICARE ==
[~2016-09-29] VITALS: Ht 162.6 cm; Wt 97.0 kg
[~2016-09-29 08:21] MED LIST changes: +CARV3.125 PO; +CEFT500T3 PO; -HYDR25TA5 PO; -NORC5TAB PO; -POTA10CA PO; -PRIL20CA9 PO
[2016-09-29 08:23] VITALS: BP 158/72; PULSE 124; RESP 24; TEMP 97.5; O2SAT 98
[2016-09-29 08:25] VITALS: PULSE 123
[2016-09-29] MEDS ORDERED: MORPHINE SULFATE 4 MG/ML INJ IV PUSH ONE ×2 (08:45→12:00)
[2016-09-29] MEDS ORDERED: ONDANSETRON HCL 4 MG/2 ML VIAL IV PUSH ONE (08:45)
[2016-09-29] MEDS ORDERED: SODIUM CHLORID 0.9% 500 ML INJ 500 ML IV ONE (08:45)
[2016-09-29] MEDS ORDERED: LACTCAP8 PO (08:53)
[2016-09-29] MEDS ORDERED: POTA-255 (08:53)
--- NOTE | 2016-09-29 08:57 | PD ---
HPI Chief Complaint: Fall Time Seen by Provider: 08:32 Travel History International Travel<30 days: No Contact w/Intl Traveler<30days: No Traveled to known affect area: No History of Present Illness HPI The patient is a 65-year-old female who presents emergency department for right knee pain. The patient states she got up in the middle the night to get a glass of water and slipped on a rug. The patient landed on a tile floor, landed on the extensor surface of the right knee. The patient laid on the floor for several hours, was unable to ambulate or bear weight on the right leg secondary to the right knee pain. The pain is located in the inferior aspect of the knee and radiates to the posterior aspect of the knee. The pain is worse with movement. She also complains of numbness to the right foot. She does complain of swelling of the right knee, denies any previous right knee injuries. The patient does have a history of fallopian tube cancer and recently finished chemotherapy by her oncologist, Dr. Pereira. The patient denied any head injury or neck injury with the fall. She denies any other physical complaints. Symptoms are moderate, exacerbated after falling, and there are no current alleviating factors. PFSH Past Medical History Cancer: Yes Cardiovascular Problems: No Chemotherapy: Yes Diabetes: No Diminished Hearing: No Endocrine: No Gastrointestinal Disorders: Yes (gerd) Genitourinary: No Hepatitis: No Hiatal Hernia: No Hypertension: No Immune Disorder: No Musculoskeletal: Yes (arthritis r thumb) Neurologic: No Psychiatric: No Reproductive: Yes Respiratory: No Immunizations Current: Yes Thyroid Disease: Yes Tetanus Vaccination: < 5 Years Influenza Vaccination: Yes Menopausal: Yes Past Surgical History Abdominal Surgery: Yes (GASTRIC BYPASS, LEI,APPY) AICD: No Ear Surgery: No Endocrine Surgery: No Eye Surgery: No Gynecologic Surgery: Yes (total hysterectomy dec 29, 2015) Joint Replacement: No Oral Surgery: Yes (UVILA REMOVED FOR SLEEP APNEA ) Pacemaker: No Other Surgery: Yes Social History Alcohol Use: Yes Tobacco Use: No Substance Use: No Allergies-Medications (Allergen,Severity, Reaction): Coded Allergies: Bactrim (Verified Allergy, Unknown, swelling, 09/29/16) Septra (Verified Allergy, Unknown, rash, 09/29/16) Reported Meds & Prescriptions Reported Meds & Active Scripts Active Reported Potassium (Potassium Gluconate) 600 Mg Tablet Probiotic (Lactobacillus Acidophilus) 1 Cap Cap 1 Cap PO DAILY Ascencion Thyroid (Thyroid) 120 Mg Tab 120 Mg PO DAILY Review of Systems Except as stated in HPI: all other systems reviewed are Neg Cardiovascular: No: Chest Pain or Discomfort Respiratory: No: Shortness of Breath Gastrointestinal: No: Nausea, Vomiting, Abdominal Pain Musculoskeletal: Positive: Limited ROM, Edema, Pain Neurologic: Positive: Paresthesia (patient complains of numbness to the right foot) Physical Exam Narrative GENERAL: Awake, alert, pleasant 65-year-old female who appears her stated age and is in no acute respiratory distress. SKIN: Focused skin assessment warm/dry. HEAD: Atraumatic. Normocephalic. EYES: No injection or drainage. ENT: No nasal bleeding or discharge. Mucous membranes pink and moist. NECK: Trachea midline. No JVD. CARDIOVASCULAR: Regular rate and rhythm. No murmur appreciated. Port in place right chest wall. MUSCULOSKELETAL: The right knee is edematous when compared to the left. The patient has limited ability to flex the right knee secondary to pain. The patella is midline. Positive dorsalis pedal pulses bilateral. No tenderness over the right fibular head. No tenderness of the medial or lateral malleus of the right ankle. No tenderness of the right hip. There is tenderness of the for aspect of the knee over the tibial plateau. NEUROLOGICAL: Awake and alert. No obvious cranial nerve deficits. Motor grossly within normal limits. Normal speech. Sensation was intact to soft touch of the medial, lateral, dorsal aspect of the right foot. PSYCHIATRIC: Appropriate mood and affect; insight and judgment normal. Data Data Last Documented VS Vital Signs Date Time Temp Pulse Resp B/P Pulse Ox O2 Delivery O2 Flow Rate FiO2 09/29/16 09:54 97.7 102 18 142/77 99 Room Air Orders Morphine Inj (Morphine Inj) (09/29/16 08:45) Ondansetron Inj (Zofran Inj) (09/29/16 08:45) Sodium Chlorid 0.9% 500 Ml Inj (Ns 500 M (09/29/16 08:45) Knee, Complete (4vws) (09/29/16 ) Ct Knee W/O Contrast (09/29/16 ) Canvas Knee Splint (Cks) (09/29/16 ) Crutches (09/29/16 ) Morphine Inj (Morphine Inj) (09/29/16 12:00) [facility] Medical Decision Making Medical Screen Exam Complete: Yes Emergency Medical Condition: Yes Medical Record Reviewed: Yes Interpretation(s) CT of the right knee reveals a fracture the fibular head. There is a fracture of the lateral tibial spine. There is a minimally comminuted fracture the tibial plateau without significant depression. The femoral condyle is intact. Patella subluxed laterally. There is induration along the insertion of the medial patellar retinaculum. MRI would be of benefit to exclude internal derangement. X-ray of the right knee reveals acute fractures involving the medial tibial plateau the proximal fibula. Lytic and sclerotic lesion involving the lateral aspect of the medial femoral condyle which is indeterminate. MRI may be helpful for further evaluation of this finding if clinically indicated. Differential Diagnosis differential diagnoses includes tibial plateau fracture, patella fracture, knee effusion, sprain, strain, contusion. Narrative Course The patient's port was accessed and the patient was administered morphine, Zofran, and IV fluids for her pain. 4 view x-ray of the right knee was obtained. X-ray reveals tibial plateau fracture and fraction of fibular head, therefore, CT of the knee was performed without contrast to better identify the tibial plateau fracture. CT results were noted. The patient's orthopedic surgeon is Dr. Rylan Zaragoza who has performed injections to the right shoulder in the past. Therefore, Dr. Zaragoza was paged at 11:19 AM. I discussed the patient with Dr. Zaragoza who recommends cannabis knee splint, crutches and/or walker, and outpatient follow-up in the office next week. The patient was administered another dose of morphine for pain and was placed in a knee campus splint. The patient was fitted for crutches. The patient will also be prescribed a walker. She'll be discharged home on hydrocodone/acetaminophen, states she cannot take NSAIDs secondary to previous gastric bypass. Diagnosis Primary Impression: Tibial plateau fracture, right Qualified Code: S82.141A - Tibial plateau fracture, right, closed, initial encounter Additional Impression: Fracture of head of right fibula Qualified Code: S82.831A - Fracture of head of right fibula, closed, initial encounter Patient Instructions: Narcotic given in the ED, General Instructions Additional Instructions: Canvas knee splint as directed. Crutches and/or walker as needed. Elevate, ice , follow-up with your orthopedist, Dr. Rylan Zaragoza, next week. No weightbearing. Med/Other Pt SpecificInfo: Prescription(s) given Scripts Walker with Front Wheels 1 Mis Mis #1 EA .ROUTE DIRECTED Ref 0 Prov:Jesus Arthur MD 09/29/16 Hydrocodone-Acetaminophen ([place])5-325 mg Tab1 Tab PO Q6H PRN (PAIN) #20 TAB Ref 0 Prov:Jesus Arthur MD 09/29/16 Disposition: 01 DISCHARGE HOME Condition: Stable Jesus Arthur MD Sep 29, 2016 08:57
--- NOTE | 2016-09-29 09:46 | RADRPT ---
EXAM DATE/TIME: 09/29/2016 09:20 [facility] COMPARISON: No previous studies available for comparison. INDICATIONS : Right knee pain, fall. MEDICAL HISTORY : Fallopian tube carcinoma SURGICAL HISTORY : None. ENCOUNTER: Initial ACUITY: 1 day PAIN SCORE: 10/10 LOCATION: Right lateral knee FINDINGS: There is evidence of acute fractures involving the medial tibial plateau as well as the right proxima l fibula. There is a mixed lytic and sclerotic lesion involving the right distal femur along the lat eral aspect of the medial femoral condyle. MRI may be helpful for further characterization of this i ndeterminate lesion. No significant knee joint effusion is noted. CONCLUSION: 1. Acute fractures involving the medial tibial plateau and the proximal fibula. 2. Mixed lytic and sclerotic lesion involving the lateral aspect of the medial femoral condyle which is indeterminate. MRI may be helpful for further evaluation of this finding, if clinically indicate dAlberto Lambert MD on September 29, 2016 at 9:35 Board Certified Radiologist. This report was verified electronically.
[2016-09-29 09:54] VITALS: BP 142/77; PULSE 102; RESP 18; TEMP 97.7; O2SAT 99
--- NOTE | 2016-09-29 11:13 | RADRPT ---
EXAM DATE/TIME: 09/29/2016 10:47 [facility] COMPARISON: KNEE RIGHT COMPLETE (4VWS), September 29, 2016, 9:20. INDICATIONS : Rt knee trauma from a fall today. RADIATION DOSE: 7.29 CTDIvol (mGy) MEDICAL HISTORY : Fallopian tube cancer, recent chemo treatment SURGICAL HISTORY : ENCOUNTER: Initial ACUITY: 1 day PAIN SCALE: 4/10 LOCATION: Right knee TECHNIQUE: Volumetric scanning of the knee was performed. Using automated exposure control and adjustment of th e mA and/or kV according to patient size, radiation dose was kept as low as reasonably achievable to obtain optimal diagnostic quality images. FINDINGS: There is a fracture of the fibular head. There is a fracture of the lateral tibial spine. There is a minimally comminuted fracture of the tibial plateau without significant depression. The femoral co ndyle is intact. Patella is subluxed laterally. There is induration along the insertion of the medial patellar retina culum. CONCLUSION: Plateau fracture as described above with fibular head fracture. MRI would be of benefit to exclude i nternal derangement. Barak Grimes MD FACR on September 29, 2016 at 11:06 Board Certified Radiologist. This report was verified electronically.
[2016-09-29] MEDS ORDERED: NORC5TAB PO (11:51)
[2016-09-29] MEDS ORDERED: WALKER WHEELS/F1 MIS (11:52)
[2016-09-29 12:14] VITALS: RESP 17
[2016-09-29 13:04] VITALS: BP 130/78; TEMP 97.7
== END 2016-09-29 12:40 | disposition home or self-care (01) ==
LOC: NEPC 08:21
DX: S82.141A Displaced bicondylar fracture of right tibia, initial encounter for closed fracture (principal); K21.9 Gastro-esophageal reflux disease without esophagitis; W01.0XXA Fall on same level from slipping, tripping and stumbling without subsequent striking against object, initial encounter
CPT/HCPCS: 73564; 73700; 96361; 96374; 96375; 99285; E0113; J1642; J2270; J2405; J7040; L1830